=== PATIENT | female | born 1960 | race Two or more races ===

== ENCOUNTER 2025-11-01 11:34 | Emergency (ER) | payer BC ==
[~2025-11-01] VITALS: Ht 152.4 cm; Wt 63.5 kg
[2025-11-01] MEDS ORDERED: OLANZAPINE5 MG (12:09)
[2025-11-01] MEDS ORDERED: METFORMIN HCL500 MG (12:09)
[2025-11-01] MEDS ORDERED: ATORVASTATIN CA20 MG (12:10)
[2025-11-01 13:45] LABS: BASO % 0.3 % (0.1-1.2); EOS # 0.14 (0.04-0.54); EOS % 1.4 % (0.7-7.0); LYMPH # 1.78 (1.18-3.74); LYMPH % 17.8 % (19.3-53.1); MEAN PLATELET VOLUME 9.70 fl (9.4-12.4); MONO # 0.63 (0.24-0.82); MONO % 6.3 % (4.7-12.5); NEUT # 7.41 (1.56-6.13); NEUT % 74.0 % (34.0-71.1); RED CELL DISTRIBUTION WIDTH 12.2 % (11.6-14.4)
[2025-11-01 13:46] LABS: ERYTHROCYTE SEDIMENTATION RATE 9 mm/hr (0-30)
[2025-11-01 14:04] LABS: INR 0.98
[2025-11-01 14:09] LABS: ALT/SGPT 32 U/L (12-78); AST/SGOT 16 U/L (15-37); BILIRUBIN TOTAL 0.52 mg/dL (0.3-1.2); BUN CREA RATIO 22 (7.0-25.0); CREATININE SERUM 0.76 mg/dL (0.55-1.02); GFR 76.86; GLOBULINA 3.6 G/DL (2.4-3.5); GLUCOSE FASTING 87 mg/dL (65-100); OSMOLALITY SERUM 288 MOSM/KG (275-295)
[2025-11-01 14:20] LABS: URINE APPEARANCE Clear; URINE BILIRRUBIN Negative (NEGATIVE); URINE BLOOD Large; URINE COLOR Yellow; URINE GLUCOSE Negative (NEGATIVE); URINE KETONE Negative (NEGATIVE); URINE LEUKOCYTE Moderate; URINE NITRATE Negative; URINE PROTEIN Negative (NEGATIVE); URINE UROBILINOGEN 0.2 E.U./dl
[2025-11-01 14:25] LABS: URINE BACTERIA 25.1 uL (0.0-1933); URINE RBC 5.9 uL (0.0-20.8); URINE WBC 126.1 uL (0.0-23.2)
[2025-11-01 14:27] LABS: URINE CAST 0.28 uL (0.0-1.40); URINE EPITHELIAL CELLS 0.3 uL (0.0-38.8)
[2025-11-01] MEDS ORDERED: PYRIDIUM DS200 MG PO (18:22)
[2025-11-01] MEDS ORDERED: LEVOFLOXACIN750 MG PO (18:22)
== END 2025-11-01 18:31 | disposition home or self-care (01) ==
LOC: ER 11:35
PROVIDERS: Physician Assistant Medical
DX: N39.0 Urinary tract infection, site not specified (principal); R31.9 Hematuria, unspecified; F32.89 Other specified depressive episodes; E11.9 Type 2 diabetes mellitus without complications; Z79.84 Long term (current) use of oral hypoglycemic drugs; K59.00 Constipation, unspecified